=== PATIENT | male | born 1965 | race Caucasian/White ===

== ENCOUNTER → 2016-09-17 | Outpatient (CLI) | payer BC ==
[~2016-09-17] MED LIST: AMLO-512 PO; IBUP-1050 PO; META1TAB22 PO; MULT-506 PO
[2016-09-17 14:04] LABS: ALKALINE PHOSPHATASE 62 U/L (45-117); ALT/SGPT 40 U/L (12-78); AST/SGOT 24 U/L (15-37); BLOOD UREA NITROGEN 19 mg/dl (7-18); CALCIUM 8.5 mg/dl (8.5-10.1); CARBON DIOXIDE 27 mmol/L (21-32); CHLORIDE 109 mmol/L (98-107); CHOLESTEROL 165 mg/dl (0-200); CREATININE 0.86 mg/dl (0.60-1.40); GLUCOSE 90 mg/dl (70-99); HDL CHOLESTEROL 41 mg/dl; LDL CHOLESTEROL CALCULATED 91 mg/dl; POTASSIUM 4.5 mmol/L (3.5-5.1); SODIUM 142 mmol/L (136-145); TRIGLYCERIDES 166 mg/dl (0-150); VERY LOW DENSITY LIPOPROT CALC 33 mg/dl
== END | disposition home or self-care (01) ==
LOC: C.LABBC 09:55
PROVIDERS: ATTEND Physician Assistant Medical
DX: Z00.00 Encounter for general adult medical examination without abnormal findings (principal); I10 Essential (primary) hypertension; E78.1 Pure hyperglyceridemia